=== PATIENT | female | born 1995 | race Caucasian/White ===

== ENCOUNTER → 2020-05-07 | Outpatient (REF) | payer BC | LOC: M LAB REF 08:45 | PROVIDERS: ATTEND Physician Assistant Medical | DX: Z01.419 Encounter for gynecological examination (general) (routine) without abnormal findings (principal) ==

== ENCOUNTER → 2021-02-23 | Outpatient (CLI) | payer SELFPAY | LOC: M LABSMTC 09:46 | PROVIDERS: ATTEND Pediatrics | DX: Z11.52 Encounter for screening for COVID-19 (principal) ==

== ENCOUNTER → 2024-02-20 | Outpatient (CLI) | payer BC | LOC: M RAD 12:54 | PROVIDERS: ATTEND Family Medicine | DX: Z34.91 Encounter for supervision of normal pregnancy, unspecified, first trimester (principal); Z3A.01 Less than 8 weeks gestation of pregnancy ==

== ENCOUNTER → 2024-05-10 | Outpatient (CLI) | payer BC | LOC: M RAD 15:52 | PROVIDERS: ATTEND Obstetrics & Gynecology | DX: Z34.92 Encounter for supervision of normal pregnancy, unspecified, second trimester (principal); Z3A.18 18 weeks gestation of pregnancy ==

== ENCOUNTER → 2024-06-28 | Outpatient (CLI) | payer BC | LOC: M RAD 14:27 | PROVIDERS: ATTEND Advanced Practice Midwife | DX: Z34.82 Encounter for supervision of other normal pregnancy, second trimester (principal); Z3A.25 25 weeks gestation of pregnancy ==

== ENCOUNTER → 2024-08-23 | Outpatient (CLI) | payer OTHER ==
[2024-08-23 18:05] LABS: MEAN CORPUSCULAR HEMOGLOBIN 32.2 pg (27.0-33.0); MEAN CORPUSCULAR HGB CONC 33.3 g/dl (32.0-36.5); MEAN CORPUSCULAR VOLUME 96.5 fl (80.0-96.0); PLATELET COUNT, AUTOMATED 213 10^3/uL (150-450); RED BLOOD COUNT 3.73 10^6/uL (4.00-5.40)
[2024-08-23 19:03] LABS: HIV 1&2 SCREEN NEGATIVE (NEGATIVE)
[2024-08-23 19:11] LABS: HEPATITIS C VIRUS ABY INDEX < 0.02 INDEX (<0.8)
[2024-08-23 20:13] LABS: GC DNA AMPLIFICATION NEGATIVE (NEGATIVE)
== END ==
LOC: M PLALAB 16:30
PROVIDERS: ATTEND Advanced Practice Midwife
DX: Z34.82 Encounter for supervision of other normal pregnancy, second trimester (principal)

== ENCOUNTER → 2024-09-09 | Outpatient (REF) | payer OTHER | LOC: M SFHCWAGY 17:05 | PROVIDERS: ATTEND Obstetrics & Gynecology | DX: Z3A.35 35 weeks gestation of pregnancy (principal) ==

== ENCOUNTER 2024-09-20 09:44 | Inpatient (IN) | payer OTHER ==
[2024-09-20] VITALS (7 sets, daily range): BP systolic 92–122; BP diastolic 54–66
[~2024-09-20] VITALS: Ht 160 cm; Wt 64.3 kg
[2024-09-20] MEDS ORDERED: PRENTAB9 PO (09:53)
[2024-09-20] MEDS ORDERED: OXYTOCIN DRIP 30 UNITS in IV 1 EA IV PRN (10:10)
[2024-09-20] MEDS ORDERED: METHYLERGONOVINE MALEATE 0.2MG/ML 1ML VIAL IM PRN (10:10)
[2024-09-20] MEDS ORDERED: LIDOCAINE 1% MDV 20ML VIAL INFIL PRN (10:10)
[2024-09-20] MEDS ORDERED: TRANEXAMIC ACID INJection 1,000 MG in NS 100 ML IV PRN (10:10)
[2024-09-20 11:32] LABS: HEMOGLOBIN 11.8 g/dl (12.0-15.5); MEAN CORPUSCULAR HGB CONC 34.7 g/dl (32.0-36.5); PLATELET COUNT, AUTOMATED 189 10^3/uL (150-450); RED BLOOD COUNT 3.58 10^6/uL (4.00-5.40); WHITE BLOOD COUNT 11.7 10^3/uL (4.0-10.0)
[2024-09-20 12:20] LABS: HEPATITIS C VIRUS ABY INDEX < 0.02 INDEX (<0.8)
[2024-09-20] MEDS ORDERED: LR 1,000 ML IV SCH (15:40)
[2024-09-20] MEDS ORDERED: HOME MED LIST COMPLETE! XX SCH (16:00)
[2024-09-20] MEDS ORDERED: ONDANSETRON 4MG 2ML VIAL As Ordered ONE (17:45)
[2024-09-20] MEDS: ONDANSETRON 4MG 2ML VIAL IV ONE (17:46)
[2024-09-20] MEDS: PROMETHAZINE 25MG/ML 1ML VIAL IV ONE (19:40)
[2024-09-20] MEDS ORDERED: OXYTOCIN DRIP 30 UNITS in IV 1 EA IV SCH (23:40)
[2024-09-21] VITALS (32 sets, daily range): BP systolic 89–136; BP diastolic 47–81; TEMP 99; O2SAT 97–98
[2024-09-21] MEDS ORDERED: ONDANSETRON 4MG 2ML VIAL IV SCH
[2024-09-21] MEDS ORDERED: ONDANSETRON 4MG 2ML VIAL IV PRN ×3 (00:45→17:00)
[2024-09-21] MEDS ORDERED: NALOXONE INJ 0.4MG/1ML VIAL IV PRN ×2 (00:45→14:50)
[2024-09-21] MEDS ORDERED: ePHEDrine SULFATE 25 MG/5 ML(5MG/ML) SYRINGE IVP PRN (00:45)
[2024-09-21] MEDS ORDERED: EPIDURAL/PCA KEYS XX PRN (00:45)
[2024-09-21] MEDS ORDERED: diphenhydrAMINE 50MG/ML VIAL IV PRN (00:45)
[2024-09-21] MEDS: FENTANYL/ROPIVACAINE/NACL BAG 100 ML EPIDURAL SCH (06:35)
[2024-09-21] MEDS: LR 1,000 ML IV SCH (06:36)
[2024-09-21] MEDS: OXYTOCIN DRIP 30 UNITS in IV 1 EA IV SCH ×2 (06:36→15:37)
[2024-09-21] MEDS: LR 500 ML IV PRN (06:36)
[2024-09-21] MEDS ORDERED: KETOROLAC 60MG 2ML VIAL As Ordered ONE (13:24)
[2024-09-21] MEDS ORDERED: LIDOCAINE 2% W/EPINEPHRINE 20ML VIAL **PRES FREE As Ordered ONE (13:24)
[2024-09-21] MEDS ORDERED: MORPHINE PRES-FREE INJ 10 MG/10 ML VIAL As Ordered ONE (13:24)
[2024-09-21] MEDS: ceFAZolin SOD 2 GM in IV 1 EA IV ONE (13:38)
[2024-09-21] MEDS: BICITRA 30ML SOLN UDC PO ONE (13:38)
[2024-09-21] MEDS: AZITHROMYCIN INJ 500 MG, VIAL MATE ADAPTER 1 EACH in NS 250 ML IV ONE (13:38)
[2024-09-21] MEDS ORDERED: ACETAMINOPHEN 1000MG/100ML IV BAG As Ordered ONE (13:41)
[2024-09-21] MEDS ORDERED: OXYTOCIN 30UNITS IN 0.9% NaCl 500ML IV BAG As Ordered ONE (13:41)
[2024-09-21] MEDS ORDERED: **NOTE PATIENT COMMENT** MISC XX SCH (14:50)
[2024-09-21] MEDS ORDERED: METOCLOPRAMIDE INJ 10MG/2ML VIAL IV PRN (14:50)
[2024-09-21] MEDS ORDERED: HYDROMORPHONE HCL 0.5 MG/ 0.5 ML SYRINGE IV PRN (14:50)
[2024-09-21] MEDS ORDERED: fentaNYL 100 MCG/2 ML INJECTION IV PRN (14:50)
[2024-09-21] MEDS ORDERED: NALBUPHINE HCL 10 MG/ML 1ML AMP IV PRN (14:50)
[2024-09-21] MEDS ORDERED: PROMETHAZINE 25MG/ML 1ML VIAL IV PRN (14:50)
[2024-09-21] MEDS: SLF 3 ML SYR IV SCH (14:50)
[2024-09-21] MEDS ORDERED: RHOGAM 300MCG (1500IU) INJ IM SCH (15:00)
[2024-09-21] MEDS ORDERED: MORPHINE 4 MG/ML 1ML VIAL IV PRN (15:00)
[2024-09-21] MEDS ORDERED: CALCIUM CARBONATE 500 MG CHEW U/D PO PRN (15:00)
[2024-09-21] MEDS ORDERED: ANUSOL HC CREAM 30GM TOP PRN (15:00)
[2024-09-21] MEDS ORDERED: IBUP80TA PO (15:06)
[2024-09-21] MEDS ORDERED: COLA100C5 PO (15:06)
[2024-09-21] MEDS ORDERED: PERCOCET PO (15:06)
[2024-09-21] MEDS ORDERED: MEPERIDINE 25 MG/ML 1ML VIAL As Ordered ONE (15:33)
[2024-09-21] MEDS: MEPERIDINE 25 MG/ML 1ML VIAL IV PRN (15:36)
[2024-09-21] MEDS ORDERED: oxyCODONE 5MG TAB As Ordered ONE (16:09)
[2024-09-21] MEDS: oxyCODONE 5MG TAB PO PRN (16:11)
[2024-09-21] MEDS: KETOROLAC 30 MG/ML 1ML VIAL IV SCH (20:24)
[2024-09-22 02:00] VITALS: BP 90/50; O2SAT 100
[2024-09-22 06:00] VITALS: BP 97/46; O2SAT 100
[2024-09-22] MEDS ORDERED: BOOSTRIX VACCINE (TETANUS/DIPHTH/ACEL. PERTUSSIS) 0.5ML SYR IM.IMMUN ONE (09:00)
[2024-09-22 09:35] LABS: HEMATOCRIT 25.8 % (36.0-47.0); MEAN CORPUSCULAR HEMOGLOBIN 32.5 pg (27.0-33.0); MEAN CORPUSCULAR HGB CONC 34.1 g/dl (32.0-36.5); MEAN CORPUSCULAR VOLUME 95.2 fl (80.0-96.0); PLATELET COUNT, AUTOMATED 157 10^3/uL (150-450); RED BLOOD COUNT 2.71 10^6/uL (4.00-5.40); WHITE BLOOD COUNT 15.6 10^3/uL (4.0-10.0)
[2024-09-22 09:36] LABS: HEMOGLOBIN 8.8 g/dl (12.0-15.5)
[2024-09-22] MEDS: PRENATAL VITAMINS CHEWABLE TABLET PO SCH (09:55)
[2024-09-22] MEDS: ACETAMINOPHEN 500 MG TAB PO PRN (09:56)
[2024-09-22 10:10] VITALS: BP 101/61; O2SAT 99
[2024-09-22 13:42] VITALS: BP 109/52; O2SAT 98
[2024-09-22] MEDS: IBUPROFEN 800 MG TAB PO SCH (16:01)
[2024-09-22] MEDS: PERCOCET 5MG/325MG TAB PO PRN ×2 (16:02→23:53)
[2024-09-22 18:09] VITALS: BP 118/59; O2SAT 98
[2024-09-22] MEDS: DOCUSATE SODIUM 100MG CAPSULE PO PRN (20:03)
[2024-09-22] MEDS: SIMETHICONE 80MG CHEW TAB PO PRN (20:03)
[2024-09-22 22:00] VITALS: BP 107/56; O2SAT 100
[2024-09-23 03:00] VITALS: BP 104/59; O2SAT 99
[2024-09-23 06:18] VITALS: BP 142/60; O2SAT 98
[2024-09-23] MEDS: MEASLES,MUMPS,RUBELLA VACCINE INJ (MMR-II) SC.IMMUN ONE (09:00)
[2024-09-23 10:00] VITALS: BP 111/64; O2SAT 99
[2024-09-23] MEDS: BOOSTRIX VACCINE (TETANUS/DIPHTH/ACEL. PERTUSSIS) 0.5ML SYR IM.IMMUN ONE (10:00)
[2024-09-23] MEDS: FERROUS GLUCONATE 324 MG TAB PO SCH (14:08)
[2024-09-23 18:00] VITALS: BP 102/64; O2SAT 98
[2024-09-23 22:18] VITALS: BP 114/59; O2SAT 98
[2024-09-23 23:36] LABS: HEMATOCRIT 25.1 % (36.0-47.0); HEMOGLOBIN 8.4 g/dl (12.0-15.5); MEAN CORPUSCULAR HEMOGLOBIN 32.4 pg (27.0-33.0); MEAN CORPUSCULAR HGB CONC 33.5 g/dl (32.0-36.5); MEAN CORPUSCULAR VOLUME 96.9 fl (80.0-96.0); PLATELET COUNT, AUTOMATED 169 10^3/uL (150-450); RED BLOOD COUNT 2.59 10^6/uL (4.00-5.40); WHITE BLOOD COUNT 10.3 10^3/uL (4.0-10.0)
[2024-09-24 02:51] VITALS: BP 119/60; O2SAT 98
[2024-09-24 06:00] VITALS: BP 110/63; O2SAT 98
[2024-09-24 18:00] VITALS: BP 104/69; O2SAT 98
== END 2024-09-24 20:23 | disposition home or self-care (01) | DRG 788 ==
LOC: M LDO 09:44 → M LDI 10:07 → M OBS 09-21 16:53
PROVIDERS: ADMIT Obstetrics & Gynecology; ATTEND Obstetrics & Gynecology
PROC: 10D00Z1 Extraction of Products of Conception, Low, Open Approach (ICD-10-PCS; principal; 2024-09-21 13:10)
DX: O33.1 Maternal care for disproportion due to generally contracted pelvis (principal); Z37.0 Single live birth; Z3A.37 37 weeks gestation of pregnancy; O32.4XX0 Maternal care for high head at term, not applicable or unspecified; O42.12 Full-term premature rupture of membranes, onset of labor more than 24 hours following rupture; O24.419 Gestational diabetes mellitus in pregnancy, unspecified control; O13.4 Gestational [pregnancy-induced] hypertension without significant proteinuria, complicating childbirth